=== PATIENT | female | born 1995 | race Caucasian/White ===

== ENCOUNTER 2018-03-27 00:35 | Inpatient (IN) | payer OTHER ==
[~2018-03-27] VITALS: Ht 157.5 cm; Wt 83.0 kg
[2018-03-27] MEDS ORDERED: PRENATAL 19 TA1 EAC1 PO (01:07)
== END 2018-03-29 14:20 | DRG 775 ==
LOC: OBS/DEL 00:35 → LDR 11:22 → OB/GYN 18:12
PROC: 10E0XZZ Delivery of Products of Conception, External Approach (ICD-10-PCS; principal; 2018-03-27)
PROC: 0UQMXZZ Repair Vulva, External Approach (ICD-10-PCS; 2018-03-27)
PROC: 10907ZC Drainage of Amniotic Fluid, Therapeutic from Products of Conception, Via Natural or Artificial Opening (ICD-10-PCS; 2018-03-27)
PROC: 4A033R1 Measurement of Arterial Saturation, Peripheral, Percutaneous Approach (ICD-10-PCS; 2018-03-27)
PROC: 4A1HXCZ Monitoring of Products of Conception, Cardiac Rate, External Approach (ICD-10-PCS; 2018-03-27)
DX: O70.0 First degree perineal laceration during delivery (principal); Z3A.39 39 weeks gestation of pregnancy; Z37.0 Single live birth